=== PATIENT | female | born 2005 | race Caucasian/White ===

== ENCOUNTER 2024-04-02 12:15 | Emergency (ER) | payer BC ==
[~2024-04-02] VITALS: Ht 170.2 cm; Wt 54.5 kg
[2024-04-02 12:30] VITALS: TEMP 97.6
[2024-04-02] MEDS ORDERED: Ketorolac 15 MG/ML VIAL IV ONE (14:15)
[2024-04-02] MEDS ORDERED: dexAMETHasone 10 MG/ML VIAL IV ONE (14:15)
[2024-04-02] MEDS ORDERED: LR 1,000 ML IV ONE (14:15)
[2024-04-02 15:39] VITALS: BP 109/66; PULSE 77
== END 2024-04-02 15:39 | disposition home or self-care (01) ==
LOC: COL.ER 12:15
DX: R51.9 Headache, unspecified (principal)
CPT/HCPCS: J0780; J1100; J1885; J7120

== ENCOUNTER 2024-04-03 09:44 | Emergency (ER) | payer BC ==
[~2024-04-03] VITALS: Ht 170.2 cm; Wt 54.5 kg
[2024-04-03 09:53] VITALS: TEMP 98.5
[2024-04-03] MEDS ORDERED: Ketorolac 15 MG/ML VIAL IV ONE (13:30)
[2024-04-03] MEDS ORDERED: LR 1,000 ML IV ONE (13:30)
[2024-04-03] MEDS ORDERED: Ondansetron 4 MG/2 ML VIAL IV ONE (13:30)
[2024-04-03 13:50] LABS: BASO # 0.1 K/mm3 (0.0-0.2); BASO % 0.7 % (0.0-2.0); EOS % 0.3 % (0.0-4.0); GRAN # 5.4 K/mm3 (1.4-6.5); GRAN % 60.8 % (42.2-75.2); HEMATOCRIT 37.2 % (35.0-45.0); LYMPH # 2.7 K/mm3 (1.2-3.4); LYMPH % 30.4 % (20.0-51.0); MEAN CELL VOLUME 87 fl (80.0-95.0); MEAN CORPUSCULAR HEMOGLOBIN 30 pg (26-32); MEAN CORPUSCULAR HGB CONC 35 g/dl (33.0-37.0); MEAN PLATELET VOLUME 9.9 fl (7.4-10.4); MONO # 0.7 K/mm3 (0.1-0.6); MONO % 7.6 % (1.7-9.3); PLATELET COUNT 298 K/mm3 (130-400); RED BLOOD COUNT 4.28 M/mm3 (4.10-5.30); REDCELL DISTRIBUTION WIDTH-CV 11.3 % (11.5-14.5)
[2024-04-03 14:09] LABS: ALBUMIN 4.3 g/dL (3.5-5.0); BILIRUBIN,TOTAL 2.1 mg/dL (0.2-1.2); CALCIUM 9.2 mg/dL (8.4-10.2); CREATININE, serum 0.75 mg/dL (0.57-1.11); POTASSIUM 3.7 mEq/L (3.5-4.5); TOTAL PROTEIN 7.1 g/dl (6.2-8.1)
[2024-04-03 14:55] VITALS: BP 112/75; PULSE 74
== END 2024-04-03 15:00 | disposition home or self-care (01) ==
LOC: COL.ER 09:44
PROVIDERS: Emergency Medicine
DX: R51.9 Headache, unspecified (principal)
CPT/HCPCS: J1885; J2405; J7120